=== PATIENT | female | born 1960 ===

== ENCOUNTER 2023-03-26 11:00 | Inpatient (IN) | payer OTHER ==
[~2023-03-26] VITALS: Ht 165.1 cm; Wt 84.4 kg
[2023-03-26] MEDS ORDERED: JANUVIA100 MG PO (13:26)
[2023-03-26] MEDS ORDERED: METFORMIN HCL850 M1 PO (13:26)
[2023-03-26] MEDS ORDERED: LIPITOR40 MG PO (13:26)
[2023-03-26] MEDS ORDERED: CHILDREN'S ASPI81 MG PO (13:26)
[2023-03-26] MEDS ORDERED: ESOMEPRAZOLE MA40 MG PO (13:27)
[2023-04-15] MEDS ORDERED: FAMOTIDINE20 MG (08:27)
[2023-04-15 15:12] LABS: HEMATOCRIT 37.2 % (36.0-45.00); MEAN CELL VOLUME 74.5 fL (80.00-100.00); MEAN CORPUSCULAR HEMOGLOBIN 24.1 pg (27.00-32.0); MEAN CORPUSCULAR HGB CONC 32.4 g/dl (32.0-36.0); PLATELET COUNT 268 K/uL (150-450); RED BLOOD COUNT 4.99 M/uL (4.00-6.00); RED CELL DISTRIBUTION WIDTH 20.4 % (11.5-14.5)
[2023-04-15 15:41] LABS: CREATININE SERUM 0.7 mg/dL (0.55-1.02); GFR 84.51; POTASSIUM 4.39 mEq/L (3.5-5.1)
[2023-04-16 04:17] LABS: HEMATOCRIT 32.9 % (36.0-45.00); HEMOGLOBIN 10.9 g/dL (12.0-15.00); MEAN CORPUSCULAR HEMOGLOBIN 24.1 pg (27.00-32.0); PLATELET COUNT 242 K/uL (150-450); RED BLOOD COUNT 4.51 M/uL (4.00-6.00); RED CELL DISTRIBUTION WIDTH 20.2 % (11.5-14.5)
[2023-04-16 04:34] LABS: CALCIUM 8.4 mg/dL (8.5-10.1); CREATININE SERUM 0.57 mg/dL (0.55-1.02); GFR 107.13; POTASSIUM 4.27 mEq/L (3.5-5.1)
== END 2023-04-16 11:59 | disposition home or self-care (01) | DRG 741 ==
LOC: O/R 04-15 05:45 → SURH 04-15 07:00 → OB/GYN 04-15 10:57 → SURH 04-15 11:00 → OB/GYN 04-16 11:59
PROVIDERS: Obstetrics & Gynecology; ADMIT Obstetrics & Gynecology Gynecologic Oncology; ATTEND Obstetrics & Gynecology Gynecologic Oncology
PROC: 07BC4ZZ Excision of Pelvis Lymphatic, Percutaneous Endoscopic Approach (ICD-10-PCS; 2023-04-15)
PROC: 0UT74ZZ Resection of Bilateral Fallopian Tubes, Percutaneous Endoscopic Approach (ICD-10-PCS; 2023-04-15)
PROC: 0UT24ZZ Resection of Bilateral Ovaries, Percutaneous Endoscopic Approach (ICD-10-PCS; 2023-04-15)
PROC: 8E0W4CZ Robotic Assisted Procedure of Trunk Region, Percutaneous Endoscopic Approach (ICD-10-PCS; 2023-04-15)
PROC: 0UT94ZZ Resection of Uterus, Percutaneous Endoscopic Approach (ICD-10-PCS; principal; 2023-04-15 07:00)
DX: C54.1 Malignant neoplasm of endometrium (principal); Z20.822 Contact with and (suspected) exposure to COVID-19
CPT/HCPCS: 58548; S2900